=== PATIENT | male | born 1970 | race African-American/Black ===

== ENCOUNTER 2022-07-24 16:23 | Outpatient (CLI) | payer BC, SELFPAY ==
--- NOTE | ~2022-07-24 | XR_ITS ---
XR hip LT 2V w AP pelvis 07/24/2022 16:43 Indication: Left hip pain for 6 weeks Procedure: 3 views left hip including AP pelvis Comparison: No prior studies for comparison. Findings: There is severe osteoarthritis of the left hip. There is Lucency and sclerosis of the femoral head. Cannot exclude avascular necrosis. There is mild-moderate osteoarthritis of the right hip. Pelvic rings are intact. Impression: 1: Severe osteoarthritis of the left hip. Reviewed, dictated and finalized at location B. Impression: 1: Severe osteoarthritis of the left hip.
== END 2022-07-24 16:24 ==
PROVIDERS: PCP Family Medicine Adolescent Medicine; Visit Provider Family Medicine Adolescent Medicine
DX: M16.12 Unilateral primary osteoarthritis, left hip (principal)
CPT/HCPCS: 73502